=== PATIENT | female | born 1935 | race Caucasian/White ===

== ENCOUNTER → 2017-12-11 | Day surgery (SDC) | payer OTHER ==
[2017-12-10 11:48] LABS: BASOPHILS # (AUTO) 0.1 (0.0-0.1); BASOPHILS % 1.3 % (0.0-1.0); EOSINOPHILS # (AUTO) 0.3 (0.0-0.4); EOSINOPHILS % 3.4 % (0.0-6.0); HEMATOCRIT 44.5 % (34.2-44.1); HEMOGLOBIN 15.1 g/dL (12.0-16.0); LYMPHOCYTES # (AUTO) 2.6 (1.0-3.2); LYMPHOCYTES % 31.2 % (18.0-39.1); MEAN CORPUSCULAR HEMOGLOBIN 31.1 pg (28-32); MEAN CORPUSCULAR HGB CONC 33.9 g/dL (31-35); MEAN CORPUSCULAR VOLUME 91.6 fL (81-99); MONOCYTES # (AUTO) 0.8 (0.2-0.8); MONOCYTES % 9.7 % (4.4-11.3); NEUTROPHILS # (AUTO) 4.5 (2.1-6.9); PLATELET COUNT 256 x10e3/uL (140-360); RED BLOOD COUNT 4.86 x10e6/uL (3.6-5.1); RED CELL DISTRIBUTION WIDTH 12.7 % (11.7-14.4)
--- NOTE | 2017-12-10 12:01 | Diagnostic Imaging Report ---
PROCEDURE: X-RAY CHEST, TWO VIEWS COMPARISON: None. INDICATIONS: PREOPERATIVE CHEST XRAY FOR BLADDER SURGERY FINDINGS: LUNGS: No consolidations or edema. PLEURA: No effusions or pneumothorax. HEART \T\ MEDIASTINUM: Mild tortuosity and atherosclerotic calcification of the thoracic aorta. Normal heart size. No pulmonary edema. BONES \T\ SOFT TISSUES: No acute findings. CONCLUSION: No acute thoracic abnormality. Dictated by: Marcel Linda M.D. on 12/10/2017 at 12:05 Electronically approved by: Marcel Linda M.D. on 12/10/2017 at 12:05
[~2017-12-11] MED LIST: ASPIRIN81 MG; B COMPLEX1 EACH; BETIMOL5 M1; BOTULINUM TOXIN TYPE A 100 UNIT VIAL IM ONE; CALCIUM WITH V1 EAC1; CEFTRIAXONE SOD 1 GM VIAL ONE; DORZOLAMIDE HCL10 ML OP; EPHEDRINE SULFATE INJ 50 MG/10 ML SYR ONE; EXFORGE 5-1601 EACH; FENTANYL CITRATE/PF 100MCG/2 ML INJ ONE; FISH OIL 1,0001 EAC2; IOPAMIDOL 610MG/1ML 300 MG/ML VIAL IV ONE; LATANOPROST; LEVOTHYROXINE50 MCG PO; LIDOCAINE HCL 2% LOCAL INJ 5 ML SDV VIAL INJ ONE; ONDANSETRON HCL INJ 2 MG/ML VIAL ONE; PROPOFOL IV EMULSION 10 MG/ML 20 ML VIAL ONE; RHOPRESSA; SEVOFLURANE INHAL SOLN 250 ML PEN BTL ONE
--- NOTE | 2017-12-14 09:37 | Operative Report ---
DATE OF PROCEDURE: December 11, 2017 PREOPERATIVE DIAGNOSIS: Refractory urge incontinence. POSTOPERATIVE DIAGNOSIS: Refractory urge incontinence. PROCEDURE: Cystourethroscopy with Botox injection (chemodenervation of bladder), CPT 80912. ANESTHESIA: General. ESTIMATED BLOOD LOSS: Minimal. COMPLICATIONS: None. INDICATIONS: Ms. Ovalle is a 50-year-old female who has failed multiple medications for urge incontinence. She now elects to proceed with Botox instead of percutaneous nerve stimulation or InterStim. She voiced an understanding of the options, the alternatives, and the risks and benefits and elected to proceed. PROCEDURE IN DETAIL: After informed consent was obtained, the patient was taken to the operative suite and placed supine on the operating table and underwent general anesthesia by the anesthesia service. She was placed in the dorsal lithotomy position. She was sterilely prepped and draped in the standard fashion for cystoscopy. A 22.5-Romanian cystoscope was inserted per urethra. A normal urethra was noted. Panendoscopy of the bladder revealed no tumors and no stones. Both ureteral orifices were in their normal anatomic location and position and were seen to efflux clear urine. Botox injection was performed in the standard fashion in a grid-like pattern on the posterior wall. There was no active bleeding at the cessation of this. The patient tolerated the procedure well and was transported to the recovery room in excellent condition with no untoward effects noted. Job#: [id number]
== END | disposition home or self-care (01) ==
LOC: OR 06:27
PROVIDERS: ATTEND Urology
DX: N39.41 Urge incontinence (principal); N39.0 Urinary tract infection, site not specified; R35.1 Nocturia; I10 Essential (primary) hypertension; E03.9 Hypothyroidism, unspecified; K21.9 Gastro-esophageal reflux disease without esophagitis; Z88.6 Allergy status to analgesic agent; Z88.8 Allergy status to other drugs, medicaments and biological substances; Z01.810 Encounter for preprocedural cardiovascular examination; Z01.812 Encounter for preprocedural laboratory examination; Z01.818 Encounter for other preprocedural examination; Z79.82 Long term (current) use of aspirin
CPT/HCPCS: 36415; 52287; 71046; 85025; 93005; J0587; J0696; J2001; J2405